=== PATIENT | female | born 1995 | race Caucasian/White ===

== ENCOUNTER → 2017-09-22 | Outpatient (CLI) | payer BC ==
[2017-09-22] VITALS (8 sets, daily range): BP systolic 105–115; BP diastolic 61–79; PULSE 95–127; TEMP 98–98.4
[~2017-09-22] MED LIST: PERCOCET 325 MG1 TA2 PO
[2017-09-22 20:57] LABS: BASO % 0.2 % (0.0-2.0); EOS # 0.1 (0.0-0.7); EOS % 0.5 % (0-4.0); GRAN # 9.2 (1.4-6.5); GRAN % 72.5 % (42.2-75.2); HEMATOCRIT 37.7 % (37.0-47.0); HEMOGLOBIN 12.5 g/dl (12.5-16.0); LYMPH # 2.7 (1.2-3.4); LYMPH % 21.1 % (20.0-51.0); MEAN CELL VOLUME 93 fl (80.0-100.0); MEAN CORPUSCULAR HEMOGLOBIN 31 pg (27.0-31.0); MEAN CORPUSCULAR HGB CONC 33 g/dl (33.0-37.0); MEAN PLATELET VOLUME 10.5 fl (7.4-10.4); MONO # 0.7 (0.1-0.6); MONO % 5.4 % (1.7-9.3); PLATELET COUNT 215 K/mm3 (130-400); RED BLOOD COUNT 4.07 M/mm3 (4.10-5.30); REDCELL DISTRIBUTION WIDTH-CV 12.7 % (11.5-14.5)
== END ==
LOC: LDRO 20:15
PROVIDERS: Obstetrics & Gynecology
DX: O02.0 Blighted ovum and nonhydatidiform mole (principal); Z3A.10 10 weeks gestation of pregnancy
CPT/HCPCS: J0690; J1885; J2405; J2704; J3010; J7120

== ENCOUNTER 2018-10-03 08:14 | Inpatient (IN) | payer BC ==
[~2018-10-03] VITALS: Ht 160.1 cm; Wt 75.0 kg
[~2018-10-03 08:14] MED LIST changes: +MOTRIN 800800 MG/TAB PO; +NORCO 325 MG-51 TAB PO; +ORTHO TRI-CYCLE1 TAB PO; +ZOFRAN 4MG T4 MG/TAB PO
[2018-10-03 18:38] VITALS: BP 125/68; PULSE 107; TEMP 98.3
--- NOTE | 2018-10-03 19:05 | NUR ---
G2L0. 39-2. Ambulatory to LDR 6 for schdeuled cervidil induction with spouse. Clean gown on. EFM and TOCO explained and applied. Pt states she has had occationally BH contractions but nothing consistent. Denies LOF or vaginal bleeding. Reports good movement. Plan of care explained to pt and who verbalize understanding. 1919: IV started and labs obtained via IV site. IV flushes without difficulties. Consents and assessment completed. 1942: FHR strip reactive. SVE 0/50/-2. Cervidil explained and inserted. Plan of care for bedrest for next 2 hours explained to pt and who verbalize understanding. 2142: FHR strip reactive and monitored for 2 hours post cervidil placement. Visteril administered and pt going to try and get some sleep. Call light within reach. Will continue to monitor.
[2018-10-03 20:00] VITALS: BP 100/66; PULSE 81
[2018-10-03 20:22] LABS: BASO % 0.2 % (0.0-2.0); EOS % 0.3 % (0-4.0); GRAN # 11.3 (1.4-6.5); GRAN % 77.7 % (42.2-75.2); HEMOGLOBIN 10.5 g/dl (12.5-16.0); LYMPH # 2.3 (1.2-3.4); LYMPH % 15.5 % (20.0-51.0); MEAN CELL VOLUME 87 fl (80.0-100.0); MEAN CORPUSCULAR HEMOGLOBIN 28 pg (27.0-31.0); MEAN CORPUSCULAR HGB CONC 32 g/dl (33.0-37.0); MEAN PLATELET VOLUME 11.7 fl (7.4-10.4); MONO # 0.8 (0.1-0.6); MONO % 5.7 % (1.7-9.3); PLATELET COUNT 199 K/mm3 (130-400); RED BLOOD COUNT 3.75 M/mm3 (4.10-5.30); REDCELL DISTRIBUTION WIDTH-CV 13.5 % (11.5-14.5)
[2018-10-03 20:25] LABS: HEMATOCRIT 32.7 % (37.0-47.0)
[2018-10-03 20:30] VITALS: BP 102/60; PULSE 78
[2018-10-03 21:00] VITALS: BP 105/63; PULSE 74
[2018-10-03 21:30] VITALS: BP 103/57; PULSE 73
[2018-10-04] VITALS (61 sets, daily range): BP systolic 95–134; BP diastolic 51–86; PULSE 70–123; TEMP 98–98.6
--- NOTE | 2018-10-04 07:00 | NUR ---
0630- Into patient room to dicsuss plan of care for the day. Patient showered, toast for breakfast, questions encouraged and answered. Monitors back into place, IV fluids started 0645- Pitocin started per protcol at 2 yared/units an hour, Pen G dose given, will continue to monitor.
--- NOTE | 2018-10-04 09:00 | NUR ---
0855- into patient room, discuss plan of care, review FHR strip, ultrasound- noted fetus vertex. SVE completed by noted as documented. Patient tolerated exam. Spouse at bedside. Discuss pitocin dosing up to 30 yared units. will return in 1.5 hours to reasses patient. conitnue with current plan of care.
--- NOTE | 2018-10-04 10:30 | NUR ---
PAtient reports contractions are increasing, breathing through contractions at this time.
--- NOTE | 2018-10-04 11:00 | NUR ---
at patient bedside, SVE completed, no change noted, AROM of fluids, noted clear, patient tolerated procedure. WIll continue to monitor
--- NOTE | 2018-10-04 11:15 | NUR ---
Marcelo Quezada SCIENTIFIC INFORMATICS PROJECT LEADER notified of patient request for epidural. 1106- Patient laid down for SVE and noted with intermittent tracing of FHT's with postion change, physician reviews FHR strip
--- NOTE | 2018-10-04 12:00 | NUR ---
1150- Marcelo Quezada PORCELAIN BUILDUP ASSISTANT into room for placement of epidural. Patient up to edge of bed in place, discussed placement encouraged questions. Intermittent tracing of FHT's with patient in place for epidural. 1201- Test dose given, patient tolerated well. 1206- Patient laid down into wedge left. Patient reports contractions are more tolerable. WIll continue to monitor.
--- NOTE | 2018-10-04 12:45 | NUR ---
Patient repostioned, roa placed, sve completed, patient tolerated well, no change. notified of status. Continue with current plan of care. will continue to monitor.
--- NOTE | 2018-10-04 14:30 | NUR ---
1410- Fhr rate down to 80 bpm with intermittent tracings, over 6 minutes with marked variability, spontanesou return to baseline. Nurse into room for repostioning. 1422- late deceleration noted down to 130 bpm of FHR with moderate variability and spontaneous return to baseline over 60 seconds 1424- Late decleration noted with FHR down to 130 bpm with moderate variability and spontaneous return to baseline over 50 seconds.
--- NOTE | 2018-10-04 14:44 | NUR ---
1432- FHR down to 125bpm over 70 seconds with spontaneous return to baseline and moderate variability, patient repostioned to wedge right. nurse at bedside. will continue to monitor.
--- NOTE | 2018-10-04 15:00 | NUR ---
update on patient status, reviews heart rate strip from office, discuss plan of care. will continue to monitor.
--- NOTE | 2018-10-04 15:15 | NUR ---
1500- FHR down to 125 bpm over 30 seconds with spontaenous return to baseline. 1504- FHR down to 120 bpm over 60 seconds with spontaneous return to baseline. Pitocin shut off at 1507 per physician instruciton. will continue to monitor.
--- NOTE | 2018-10-04 16:15 | NUR ---
1608- FHR down to 110bpm over 70 seconds with moderate varibility and spontaneous return to baseline. 1611- Fhr down to 130 bpm over 40 seconds with spontaneous return to baseline. 1613- FHR down to 140 bpm over 60 seconds with spontaneous return to baseline and moderate varibility. Dr. Ordoñez notified of patient status with update. WIll continue to moniotr. Pitocin shut off at this time.
--- NOTE | 2018-10-04 17:00 | NUR ---
1655- FHR down to 120 bpm over 4 minutes with moderate variability and spontaneous return to baseline. 1657- FHR down to 120bpm over 40 seconds with moderate variability and spontaneous return to baseline.
--- NOTE | 2018-10-04 17:15 | NUR ---
1700- fhr down to 120 bpm over 60 seconds with spontaneous return to baseline. 1710- fhr down to 140bpm over 2 minutes with spontaneous return to baseline and moderate variability pitocin shut off at this time.
--- NOTE | 2018-10-04 17:45 | NUR ---
at patient bedside to discuss plan of care, reviews FHR strip, SVE completed and noted as documented. Discuss progression with , provided options to patient. Per discussion or patient and plan for . Pitocin turned off, anethesia notified, charger tester notified, nursery RN notified. Begin prep with patient for surgery.
--- NOTE | 2018-10-04 18:00 | NUR ---
Marcelo Quezada TECHNICAL SALES ADVISOR at bedside for dosing of patient for prep for . Patient prepped, spouse prepped, oncoming nurse given report, assisted patient via bed to OR. Linda Saldana RN will resume care.
[2018-10-05 04:00] VITALS: BP 99/56; PULSE 86; TEMP 97.5
[2018-10-05 08:12] VITALS: BP 118/78; PULSE 81; TEMP 97.8
--- NOTE | 2018-10-05 10:18 | NUR ---
Initial visit; Parents thanked Study Manager for offering congratulations and God's blessings for the of their daughter. Study Manager thanked them for choosing [facility].
[2018-10-05 11:00] VITALS: BP 119/73; PULSE 106; TEMP 97.8
[2018-10-05 15:00] VITALS: BP 110/56; PULSE 100; TEMP 97.9
[2018-10-05 20:30] VITALS: BP 119/74; PULSE 101; TEMP 98.1
== END 2018-10-07 10:25 | disposition home or self-care (01) | DRG 788 ==
LOC: OB 08:14 → LDR 18:59 → OB 18:59
PROVIDERS: ADMIT Student in an Organized Health Care Education/Training Program
PROC: 3E0P7VZ Introduction of Hormone into Female Reproductive, Via Natural or Artificial Opening (ICD-10-PCS; 2018-10-03)
PROC: 10D00Z1 Extraction of Products of Conception, Low, Open Approach (ICD-10-PCS; principal; 2018-10-04)
PROC: 3E033VJ Introduction of Other Hormone into Peripheral Vein, Percutaneous Approach (ICD-10-PCS; 2018-10-04)
DX: O65.0 Obstructed labor due to deformed pelvis (principal); P05.10 Newborn small for gestational age, unspecified weight; Z3A.39 39 weeks gestation of pregnancy; Z37.0 Single live birth; O76 Abnormality in fetal heart rate and rhythm complicating labor and delivery; O99.824 Streptococcus B carrier state complicating childbirth
CPT/HCPCS: J0690; J1885; J2210; J2270; J2405; J2540; J2590; J7120

== ENCOUNTER 2020-10-08 10:52 | Inpatient (IN) | payer BC ==
[~2020-10-08] VITALS: Ht 160 cm; Wt 67.3 kg
[2020-11-14] VITALS (18 sets, daily range): BP systolic 96–133; BP diastolic 43–96; PULSE 53–76; TEMP 97.4–98.2
--- NOTE | 2020-11-14 10:47 | NUR ---
PT HERE FOR REPEAT . FHT'S FOUND IN THE 130'S WITH MODERATE VARIABILITY AND ACCELS. IV STARTED IN LEFT HAND WITH LR INFUSING WITHOUT DIFFICULTY. ASSESSMENT COMPLETED. PLAN OF CARE REVIEWED WITH PT AND .
[2020-11-14 11:23] LABS: BASO % 0.2 % (0.0-2.0); EOS % 0.3 % (0-4.0); GRAN # 8.8 (1.4-6.5); GRAN % 75.3 % (42.2-75.2); HEMATOCRIT 38.6 % (37.0-47.0); HEMOGLOBIN 12.2 g/dl (12.5-16.0); LYMPH # 2.2 (1.2-3.4); LYMPH % 18.6 % (20.0-51.0); MEAN CELL VOLUME 93 fl (80.0-100.0); MEAN CORPUSCULAR HEMOGLOBIN 29 pg (27.0-31.0); MEAN CORPUSCULAR HGB CONC 32 g/dl (33.0-37.0); MEAN PLATELET VOLUME 11.9 fl (7.4-10.4); MONO # 0.6 (0.1-0.6); MONO % 5.1 % (1.7-9.3); PLATELET COUNT 192 K/mm3 (130-400); RED BLOOD COUNT 4.15 M/mm3 (4.10-5.30)
--- NOTE | 2020-11-14 12:45 | NUR ---
PT AMBULATES TO OPERATING ROOM. SITS ON EDGE OF BED FOR SPINAL PLACEMENT BY MILAGROS ALFREDO. SPINAL PLACED. PT REPOSITIONED LYING DOWN AFTER SPINAL FHT'S 150'S. MERCER PLACED. ABDOMEN PREPPED WITH DURAPREP. BY DR BHATIA AND DR LOPEZ WITH DELIVERY OF MALE INFANT AT 1213. EXPRESSED DELIVERY OF PLACENTA AT 1215
--- NOTE | 2020-11-14 13:01 | NUR ---
PT AWAKE AND ALERT. TO PACU AFTER DISCHARGE FROM OPERATING ROOM. FUNDUS FIRM WITH MINIMAL BLEEDING. PT NOT HAVING ANY PAIN AT THIS TIME. ASSESSMENT COMPLETED.
--- NOTE | 2020-11-14 13:40 | NUR ---
PT TO ROOM AFTER DISCHARGE FROM PACU. AWAKE AND ALERT. FUNDUS FIRM WITH MINIMAL BLEEDING. HOLDING BABY. WATER GIVEN. TO ORDER FOOD.
[2020-11-15 02:00] VITALS: BP 100/68; PULSE 70; TEMP 98
--- NOTE | 2020-11-15 06:38 | NUR ---
PATIENT DECLINED BEDSIDE REPORT. REPORT RECEIVED FROM OFF GOING RN, GREGORIA Burdick. CARE TAKEN OVER BY THIS RN.
[2020-11-15 07:18] VITALS: BP 113/79; PULSE 71; TEMP 97.9
[2020-11-15] MEDS ORDERED: IBU800 M1 PO (08:36)
[2020-11-15] MEDS ORDERED: PERCOCET 325 MG1 TA2 PO (08:37)
--- NOTE | 2020-11-15 09:09 | NUR ---
Initial visit; Parents thanked Fiberglass Technician for offering congratulations and God's blessings for the of their son. Fiberglass Technician thanked family for choosing [facility].
--- NOTE | 2020-11-15 11:19 | NUR ---
PATIENT ATTEMPTED TO USE RESTROOM, HAS NOT BEEN ABLE TO URINATE SINCE HAVING URINARY CATH REMOVED AT 0910. RN ENCOURAGED PATIENT TO CONTINUE TO DRINK FLUIDS AND AMBULATE IF TOLERATED. PT HAS FULL PITCHER OF WATER. RN INFORMED PT IF SHE IS NOT ABLE TO URINATE BY 1215 RN WILL SCAN PT'S BLADDER. UNDERSTANDING VERBALIZED.
[2020-11-15 17:53] VITALS: BP 110/72; PULSE 83; TEMP 98.5
[2020-11-15 21:00] VITALS: BP 112/71; PULSE 79; TEMP 98
[2020-11-16 03:44] VITALS: BP 118/72; PULSE 68; TEMP 98
--- NOTE | 2020-11-16 06:45 | NUR ---
Patient reports just vomiting small amount of bile. States she instantly felt hot and then threw up. Denies nausea at this time or any other concerns. Vital signs taken, assessment completed. Will continue to monitor.
[2020-11-16 06:50] VITALS: BP 128/84; PULSE 108; TEMP 98.4
--- NOTE | 2020-11-16 09:30 | NUR ---
Patient states she just vomited again. Same as before, became nauseated and threw up. Denies any other concerns or symptoms. Call light within reach.
[2020-11-16 10:10] VITALS: BP 106/71; PULSE 104; TEMP 97.8
--- NOTE | 2020-11-16 10:10 | NUR ---
RN at bedside to check circumcision. Patient resting in bed. States she feels nauseated again. Vital signs taken. Encouraged to rest. Call light within reach.
== END 2020-11-16 13:05 | disposition home or self-care (01) | DRG 787 ==
LOC: OB
PROVIDERS: ADMIT Student in an Organized Health Care Education/Training Program
PROC: 10D00Z1 Extraction of Products of Conception, Low, Open Approach (ICD-10-PCS; principal; 2020-11-14)
PROC: 0TQB0ZZ Repair Bladder, Open Approach (ICD-10-PCS; 2020-11-14)
PROC: 04QY0ZZ Repair Lower Artery, Open Approach (ICD-10-PCS; 2020-11-14)
DX: O34.211 Maternal care for low transverse scar from previous cesarean delivery (principal); O71.5 Other obstetric injury to pelvic organs; N99.72 Accidental puncture and laceration of a genitourinary system organ or structure during other procedure; I97.52 Accidental puncture and laceration of a circulatory system organ or structure during other procedure; Z3A.39 39 weeks gestation of pregnancy; O99.344 Other mental disorders complicating childbirth; F41.9 Anxiety disorder, unspecified; Z37.0 Single live birth; Z90.49 Acquired absence of other specified parts of digestive tract; Y83.8 Other surgical procedures as the cause of abnormal reaction of the patient, or of later complication, without mention of misadventure at the time of the procedure
CPT/HCPCS: J0690; J1100; J1885; J2405; J2590; J2765; J7120

== ENCOUNTER → 2020-11-11 | Outpatient (CLI) | payer BC ==
[~2020-11-11] MED LIST changes: +IBU800 M1 PO
== END ==
LOC: ZCOL.LAB 08:33 → COL.LAB 10:49
DX: Z20.822 Contact with and (suspected) exposure to COVID-19 (principal)